=== PATIENT | female | born 1940 | race Caucasian/White ===

== ENCOUNTER → 2023-05-16 | Outpatient (CLI) | payer MEDICARE, BC ==
[2023-05-16 14:46] LABS: Alanine Aminotransfer (ALT/SGP 24 U/L (12-78); Albumin, Blood 3.8 g/dL (3.4-5.0); Albumin/Globulin Ratio 1.1 (0.8-1.8); Alk Phos 64 U/L (50-136); Anion Gap 4 mmol/L (6-16); Aspartate Aminotrans (AST/SGOT 25 U/L (12-37); Bilirubin, Total 0.4 mg/dL (0.1-1.0); Blood Urea Nitrogen 18 mg/dL (8-24); Bun/Creatinine Ratio 16.7 (12.0-20.0); CHOL/HDL RATIO 2.3; CO2, Blood 28 mmol/L (21-32); Calcium, Blood 8.8 mg/dL (8.5-10.1); Chloride, Blood 108 mmol/L (98-108); Cholesterol 155 mg/dL (50-200); Creatinine, Blood 1.08 mg/dL (0.40-1.00); Globulin, Blood 3.4 g/dL (2.2-4.0); Glomerular Filtration Rate 50 (60-); Glucose, Blood 110 mg/dL (70-99); HDL Cholesterol 67 mg/dL (>39); LDL/HDL RATIO 0.8; Low Density Lipoprotein Chol 56 mg/dL (0-110); Potassium, Blood 4.7 mmol/L (3.5-5.5); Sodium, Blood 140 mmol/L (136-145); Total Protein, Blood 7.2 g/dL (6.4-8.2); Triglycerides 159 mg/dL (30-160); Very Low Density Lipoprot Chol 31 mg/dL (6-32)
[2023-05-16 14:50] LABS: Thyroid Stimulating Hormone 0.634 uIU/mL (0.360-4.800)
== END | disposition home or self-care (01) ==
LOC: LAB SHORT 11:43 → LAB 11:43
PROVIDERS: Family Medicine
DX: E03.9 Hypothyroidism, unspecified (principal); E78.5 Hyperlipidemia, unspecified; R73.03 Prediabetes
CPT/HCPCS: 36415; 80053; 80061; 83036; 84443

== ENCOUNTER 2023-08-29 22:27 | Emergency (ER) | payer MEDICARE, BC ==
[~2023-08-29] VITALS: Ht 157.5 cm; Wt 74.8 kg
[2023-08-29 22:32] VITALS: BP 142/69
[2023-08-30] MEDS ORDERED: Vibramycin100 MG PO (00:56)
[2023-08-30] MEDS ORDERED: Flagyl500 MG PO (00:56)
[2023-08-30] MEDS ORDERED: AMLODIPINE BESYL5 MG PO (01:11)
[2023-08-30] MEDS ORDERED: AMIT50 PO (01:11)
[2023-08-30] MEDS ORDERED: PAXIL2010 PO (01:12)
[2023-08-30] MEDS ORDERED: VALSARTAN160 MG PO (01:12)
[2023-08-30] MEDS ORDERED: NIVA THYROID60 MG PO (01:12)
[2023-08-30] MEDS ORDERED: METO50ER PO (01:13)
== END 2023-08-30 01:15 | disposition home or self-care (01) ==
LOC: ER 22:27
DX: S51.851A Open bite of right forearm, initial encounter (principal); L03.113 Cellulitis of right upper limb; Z79.899 Other long term (current) drug therapy; W55.01XA Bitten by cat, initial encounter
CPT/HCPCS: 96372; 99283; A9270; J1885